=== PATIENT | male | born 1995 | race African-American/Black ===

== ENCOUNTER 2017-03-15 14:20 | Emergency (ER) | payer OTHER ==
[2017-03-15] MEDS ORDERED: LIDOCAINE 1%/EPI 1:200,000 30 ML VIAL. INJ (15:30)
[2017-03-15] MEDS ORDERED: LIDOCAINE 1% PF 2 ML VIAL. (15:34)
[2017-03-15] MEDS ORDERED: LIDOCAINE/EPI/TETRACAINE TOPICAL GEL 3 ML. TP (16:25)
== END 2017-03-15 17:08 | disposition home or self-care (01) ==
LOC: ER 14:20
DX: S61.411A Laceration without foreign body of right hand, initial encounter (principal); Y28.8XXA Contact with other sharp object, undetermined intent, initial encounter; Y93.89 Activity, other specified; Y99.8 Other external cause status; Y92.89 Other specified places as the place of occurrence of the external cause
CPT/HCPCS: 12002; 99283-25